=== PATIENT | female | born 1980 | race Caucasian/White ===

== ENCOUNTER → 2018-10-01 | Outpatient (CLI) | payer BC, OTHER ==
[~2018-10-01] MED LIST: NOHOMEMEDICATIONS; NORCO 5-325 TA1 EACH PO; NORVASC 2.5 MG2.5 M1 PO; NORVASC 2.5 MG2.5 MG PO; PERCOCET 5-3251 EACH PO
== END ==
LOC: RAD 15:30
DX: Z12.31 Encounter for screening mammogram for malignant neoplasm of breast (principal)

== ENCOUNTER → 2019-04-15 | Outpatient (CLI) | payer OTHER | LOC: CAT 14:33 | DX: Z13.6 Encounter for screening for cardiovascular disorders (principal); E78.00 Pure hypercholesterolemia, unspecified; I25.10 Atherosclerotic heart disease of native coronary artery without angina pectoris ==

== ENCOUNTER → 2019-10-02 | Outpatient (CLI) | payer BC, OTHER | LOC: RAD 08:00 | DX: Z12.31 Encounter for screening mammogram for malignant neoplasm of breast (principal) ==

== ENCOUNTER → 2021-02-21 | Outpatient (CLI) | payer BC, OTHER | LOC: BC 14:20 | PROVIDERS: ATTEND Specialist | DX: Z12.31 Encounter for screening mammogram for malignant neoplasm of breast (principal) ==

== ENCOUNTER → 2021-02-23 | Outpatient (CLI) | payer BC, OTHER | LOC: ULTRA 08:16 | PROVIDERS: ATTEND Radiology Diagnostic Radiology | DX: N63.24 Unspecified lump in the left breast, lower inner quadrant (principal) ==

== ENCOUNTER → 2021-03-07 | Outpatient (CLI) | payer OTHER ==
--- NOTE | 2021-03-14 14:07 | PATH ---
[facility] [address] [place] [address] PATHOLOGY RPT PROCEDURE Name: ESTHER WESLEY Room #: REG [facility] M.R.#: [id number] Admission: 03/07/21 Date of : 76 Discharge: Report #: [id number] Path Case #: [id number] [facility] Accession Number: [id number] . 01 Material submitted: . breast - LEFT BREAST MASS . 01 Clinical history: . LEFT BREAST MASS . 02 Diagnosis: Breast tissue, left breast mass 9:00 needle biopsies: - Proliferative fibrocystic changes with the following components: - Florid ductal epithelial hyperplasia. - Stromal fibrosis. - Duct ectasia/cystic change. - Chronic inflammation. - Columnar cell change and columnar cell hyperplasia, focal. - Few microcalcifications identified. (JPM:ana 03/14/2021) QTP 03/14/2021 0954 Local . 02 Comment: There is no atypia or evidence of malignancy. (JPM:pit 03/14/2021) . 02 Electronically signed: . Maged Bruce MD, Pathologist NPI- [id number] . 01 Gross description: . The specimen is received in formalin, labeled "Esther Wesley, left breast 9:00 5 cm". Received are multiple needle cores of fibrofatty tissue measuring 2.5 x 1.5 x 0.4 cm in aggregate dimensions. The specimen is submitted entirely in cassettes A1 through A3. The cold ischemic time is 5 minutes. The total formalin fixation time is greater than 6 hours and less than 72 hours. (CAA; 03/13/2021) QAC/QAC 03/13/2021 1109 Local . 02 Pathologist provided ICD-10: N60.12, N60.32, N60.42, N61.0 . 02 CPT . 879410 Specimen Comment: A courtesy copy of this report has been sent to [phone] Specimen Comment: [place] [address] PATHOLOGY RPT PROCEDURE Name: ESTHER WESLEY Room #: REG ELIN Nickerson#: [id number] Admission: 03/07/21 Date of : 76 Discharge: Report #: [id number] Path Case #: [id number] [facility]formed at: [facility] Gust[facility]o [facility] [address], [place] [id number] MD Adan Noel MD Phone: [phone] Performed at: [id number] [place], [place] [id number] MD Maged Bruce MD Phone: [phone]
== END | disposition home or self-care (01) ==
LOC: ULTRA 08:23
PROVIDERS: ATTEND Radiology Diagnostic Radiology
DX: N60.12 Diffuse cystic mastopathy of left breast (principal); N60.42 Mammary duct ectasia of left breast; N61.0 Mastitis without abscess; R92.1 Mammographic calcification found on diagnostic imaging of breast

== ENCOUNTER → 2021-12-20 | Outpatient (CLI) | payer OTHER | LOC: RAD 14:29 | PROVIDERS: ATTEND Specialist | DX: R92.2 Inconclusive mammogram (principal) ==